=== PATIENT | male | born 1985 | race Native Hawaiian/Other Pacific Islander ===

== ENCOUNTER 2020-09-22 07:27 | Observation (INO) | payer SELFPAY ==
[2020-09-22] MEDS ORDERED: DICYCLOMINE 20 MG TAB PO ONE (07:50)
[2020-09-22] MEDS ORDERED: MORPHINE 4 MG/1 ML INJ IV ONE ×2 (07:50→11:01)
[2020-09-22] MEDS ORDERED: SODIUM CHLORIDE 0.9% 1000 ML 1,000 ML IV ONE (07:50)
[2020-09-22] MEDS ORDERED: FAMOTIDINE 20 MG/2 ML INJ IV ONE (07:50)
[2020-09-22] MEDS ORDERED: ONDANSETRON 4 MG/2 ML INJ IV ONE (07:50)
[2020-09-22 08:02] LABS: Bilirubin,Urine NEG (Negative); Blood,Urine NEG (Negative); Color,Urine Yellow (Yellow); Mucus,Urine FEW /HPF; Urobilinogen,Urine < 2.0 mg/dL (<2.0)
[2020-09-22 08:32] LABS: Basophils % (Auto) 0.2 % (0.0-1.8); Eosinophils % (Auto) 0.3 % (0.0-4.3); Hemoglobin 15.7 gm/dl (11.8-15.2); Mean Corpuscular HGB Conc 34 % (32-34); Mean Corpuscular Volume 92 fl (84-94); Monocytes # (Auto) 0.7 K/mm3 (0.0-0.8); Monocytes % (Auto) 4.2 % (0.0-7.3); Platelet Count 175 K/mm3 (140-440); Red Blood Count 5.13 M/mm3 (3.65-5.03); Red Cell Distribution Width 13.2 % (13.2-15.2)
[2020-09-22 08:48] LABS: Alanine Aminotransferase 59 units/L (7-56); Albumin 4.7 g/dL (3.9-5); Blood Urea Nitrogen 12 mg/dL (9-20); Calcium 9.6 mg/dL (8.4-10.2); Hemolysis Index 7
[2020-09-22 08:53] LABS: BUN/Creatinine Ratio 17
--- NOTE | 2020-09-22 09:48 | Emergency Department Report ---
ED Abdominal Pain HPI - General Chief Complaint: Abdominal Pain Stated Complaint: STOMACH PAIN Time Seen by Provider: 09/22/20 07:41 Source: patient, family Mode of arrival: Ambulatory Limitations: Language Barrier - History of Present Illness Initial Comments: This is a 35-year-old male nontoxic, well nourished in appearance, no acute signs of distress presents to the ED with c/o of nausea and abdominal pain in the epigastric area x 1 day. Patient denies any vomiting. Patient that he had some several beers last night and woke up this morning with pain. Patient describes abdominal pain as cramping and aching with level of 8/10 to the epigastric area. Patient denies chest pain, short of breath, fever, hemoptysis, blood in stool, chills, headache, stiff neck, numbness or tingling. Patient denies any diarrhea or constipation. Denies any blood in stool. Patient denies any recent travels. Patient denies any drug allergies significant past medical history. -: This morning Location: epigastric Radiation: none Migration to: no migration Severity: mild Severity scale (0 -10): 8 Quality: cramping, aching Consistency: constant Improves With: nothing Worsens With: nothing Associated Symptoms: nausea. denies: vomiting, diarrhea, fever, chills, constipation, dysuria, hematemesis, hematochezia, melena, hematuria, anorexia, syncope - Related Data Allergies Allergy/AdvReac Type Severity Reaction Status Date / Time No Known Allergies Allergy Unverified 09/22/20 07:32 ED Review of Systems ROS: Stated complaint: STOMACH PAIN Other details as noted in HPI Comment: All other systems reviewed and negative Constitutional: denies: chills, fever Eyes: denies: eye pain, eye discharge, vision change ENT: denies: ear pain, throat pain Respiratory: denies: cough, shortness of breath, wheezing Cardiovascular: denies: chest pain, palpitations Endocrine: no symptoms reported Gastrointestinal: abdominal pain, nausea. denies: vomiting, diarrhea, constipation, hematemesis, melena, hematochezia Genitourinary: denies: urgency, dysuria Musculoskeletal: denies: back pain, joint swelling, arthralgia Skin: denies: rash, lesions Neurological: denies: headache, weakness, paresthesias Psychiatric: denies: anxiety, depression Hematological/Lymphatic: denies: easy bleeding, easy bruising ED Past Medical Hx - Past Medical History Previous Medical History?: Yes Additional medical history: Abd pain - Surgical History Past Surgical History?: No - Social History Smoking Status: Current Every Day Smoker Substance Use Type: Alcohol ED Physical Exam - General Limitations: Language Barrier General appearance: alert, in no apparent distress - Head Head exam: Present: atraumatic, normocephalic - Eye Eye exam: Present: normal appearance - Neck Neck exam: Present: normal inspection, full ROM. Absent: tenderness, meningismus, lymphadenopathy - Respiratory Respiratory exam: Present: normal lung sounds bilaterally. Absent: respiratory distress, wheezes, rales, rhonchi, stridor, chest wall tenderness, accessory muscle use, decreased breath sounds, prolonged expiratory - Cardiovascular Cardiovascular Exam: Present: regular rate, normal rhythm, normal heart sounds. Absent: bradycardia, tachycardia, irregular rhythm, systolic murmur, diastolic murmur, rubs, gallop - GI/Abdominal GI/Abdominal exam: Present: soft, tenderness (Bilateral upper abdomen), normal bowel sounds. Absent: distended, guarding, rebound, rigid, diminished bowel sounds - Extremities Exam Extremities exam: Present: normal inspection, full ROM - Back Exam Back exam: Present: normal inspection, full ROM. Absent: tenderness, CVA tenderness (R), CVA tenderness (L), muscle spasm, paraspinal tenderness, vertebral tenderness, rash noted - Neurological Exam Neurological exam: Present: alert, oriented X3, normal gait - Psychiatric Psychiatric exam: Present: normal affect, normal mood - Skin Skin exam: Present: warm, dry, intact, normal color. Absent: rash ED Course Vital Signs 09/22/20 09/22/20 09/22/20 07:32 08:26 11:20 Temperature 97.9 F Pulse Rate 61 Respiratory 20 20 18 Rate Blood Pressure 136/86 O2 Sat by Pulse 100 Oximetry - Reevaluation(s) Reevaluation #1: 09/22/20 09:49 Patient is speaking in full sentences with no signs of distress noted. - Consultations Consultation #1: 09/22/20 11:01 Patient has been consulted with Dr. Ladd about patient history, physical exam, and labs/CT results and agrees to ED plan of care. Consultation #2: 09/22/20 14:35 Patient has been consulted with Dr. Ladd about patient history, physical exam, and labs/imaging results and agrees to the ED plan of care and admission. 09/22/20 15:02 Patient has been consulted with Dr. Larry (general surgery) about patient history, physical exam, and labs/imaging results and agrees for admission with IV antibiotics and NPO after midnight. Consultation #3: 09/22/20 15:02 Patient has been consulted with Dr. Mendoza about patient history, physical exam, and labs/imaging results and accepts patient to services. ED Medical Decision Making - Lab Data Result diagrams: 09/22/20 07:46 09/22/20 07:46 Lab Results 09/22/20 09/22/20 09/22/20 Range/Units 07:43 07:46 07:46 WBC 15.8 H (4.5-11.0) K/mm3 RBC 5.13 H (3.65-5.03) M/mm3 Hgb 15.7 H (11.8-15.2) gm/dl Hct 47.0 H (35.5-45.6) % MCV 92 (84-94) fl MCH 31 (28-32) pg MCHC 34 (32-34) % RDW 13.2 (13.2-15.2) % Plt Count 175 (140-440) K/mm3 Lymph % (Auto) 13.0 L (13.4-35.0) % [place] % (Auto) 4.2 (0.0-7.3) % Eos % (Auto) 0.3 (0.0-4.3) % Baso % (Auto) 0.2 (0.0-1.8) % Lymph # (Auto) 2.0 (1.2-5.4) K/mm3 [place] # (Auto) 0.7 (0.0-0.8) K/mm3 Eos # (Auto) 0.0 (0.0-0.4) K/mm3 Baso # (Auto) 0.0 (0.0-0.1) K/mm3 Seg Neutrophils % 82.3 H (40.0-70.0) % Seg Neutrophils # 13.0 H (1.8-7.7) K/mm3 Sodium 140 (137-145) mmol/L Potassium 4.1 (3.6-5.0) mmol/L Chloride 102.7 (98-107) mmol/L Carbon Dioxide 28 (22-30) mmol/L Anion Gap 13 mmol/L BUN 12 (9-20) mg/dL Creatinine 0.7 L (0.8-1.3) mg/dL Estimated GFR > 60 ml/min BUN/Creatinine Ratio 17 % Glucose 127 H (75-100) mg/dL Calcium 9.6 (8.4-10.2) mg/dL Total Bilirubin 0.30 (0.1-1.2) mg/dL AST 34 (5-40) units/L ALT 59 H (7-56) units/L Alkaline Phosphatase 77 (35-129) units/L Total Protein 8.2 (6.3-8.2) g/dL Albumin 4.7 (3.9-5) g/dL Albumin/Globulin Ratio 1.3 % Lipase 21 (13-60) units/L Urine Color Yellow (Yellow) Urine Turbidity Clear (Clear) Urine pH 8.0 H (5.0-7.0) Ur Specific [place] 1.017 (1.003-1.030) Urine Protein 30 mg/dl (Negative) mg/dL Urine Glucose (UA) Neg (Negative) mg/dL Urine Ketones Neg (Negative) mg/dL Urine Blood Neg (Negative) Urine Nitrite Neg (Negative) Urine Bilirubin Neg (Negative) Urine Urobilinogen < 2.0 (<2.0) mg/dL Ur Leukocyte Esterase Neg (Negative) Urine WBC (Auto) 1.0 (0.0-6.0) /HPF Urine RBC (Auto) 1.0 (0.0-6.0) /HPF Urine Mucus Few /HPF - Radiology Data Referring Physician: RONNA ROBERT Patient Name: CITLALI ART Date of : 1985 Sex: Male Report Date: 2020-09-22 Report Status: Finalized [place] [id number] Ultrasound Report Signed Patient: CITLALI ART MR#: [id number] : 1985 Acct:[id number] Age/Sex: 35 / M ADM Date: 09/22/20 Loc: ED Attending Dr: Ordering Physician: RONNA ROBERT NP Date of Service: 09/22/20 Procedure(s): US abdomen complete Accession Number(s): [id number] cc: RONNA ROBERT NP ULTRASOUND ABDOMEN, COMPLETE INDICATION: Epigastric/abdominal pain. COMPARISON: CT of the abdomen and pelvis earlier today. FINDINGS: PANCREAS: No significant abnormality. ABDOMINAL AORTA: No significant abnormality. IVC: No significant abnormality.. LIVER: No significant abnormality. GALLBLADDER: Multiple gallstones. Diffuse edematous thickening of the gallbladder wall which measures up to 4.5 mm. BILE DUCTS: No significant abnormality. Common bile duct measures 5.6 mm. KIDNEYS: Right: No significant abnormality Left: No significant abnormality SPLEEN: No significant abnormality. FREE FLUID: None. ADDITIONAL FINDINGS: None. IMPRESSION: Cholelithiasis and findings characteristic of acute cholecystitis. Signer Name: Nikita Jenkins MD Signed: 09/22/2020 2:02 PM Workstation Name: [id number] Transcribed By: RT Dictated By: Nikita Jenkins MD Electronically Authenticated By: Nikita Jenkins MD Signed Date/Time: 09/22/20 1402 DD/ 1356 TD/TT: Referring Physician: RONNA ROBERT Patient Name: CITLALI ART Date of : 1985 Sex: Male Report Date: 2020-09-22 Report Status: [place] [id number] Cat Scan Report Signed Patient: CITLALI ART MR#: [id number] : 1985 Acct:[id number] Age/Sex: 35 / M ADM Date: 09/22/20 Loc: ED Attending Dr: Ordering Physician: RONNA ROBERT NP Date of Service: 09/22/20 Procedure(s): CT angio chest Accession Number(s): [id number] cc: RONNA ROBERT NP CTA CHEST WITH IV CONTRAST INDICATION / CLINICAL INFORMATION: epigastric pain. TECHNIQUE: Axial CT images were obtained through the chest after injection of 100 cc Omnipaque 350 milligrams percent IV contrast. 3 plane MIP and/or 3D reconstructions were produced. All CT scans at this location are performed using CT dose reduction for ALARA by means of automated exposure control. COMPARISON: None available. FINDINGS: PULMONARY ARTERIES: No pulmonary emboli. THORACIC AORTA: No significant abnormality. HEART: No significant abnormality. CORONARY ARTERIES: No significant calcification. PLEURA: No pleural effusion. No pneumothorax. LYMPH NODES: No significant adenopathy. LUNGS: No acute air space or interstitial disease. ADDITIONAL FINDINGS: None. UPPER ABDOMEN: Gallbladder distention is present with slight reticulation of fat and possible pericholecystic fluid better delineated on this exam as compared to previous exam of earlier the same day. Suggestion of gallbladder wall thickening. Several small lucent calculus are present in the neck of the gallbladder. SKELETAL STRUCTURES: No significant osseous abnormality. IMPRESSION: 1. No CT evidence for pulmonary embolism. 2. CT findings worrisome for acute cholecystitis 3. Improved aeration lower lobes Signer Name: Christopher Mckeon MD Signed: 09/22/2020 12:21 PM Workstation Name: [id number] Transcribed By: WG Dictated By: Christopher Mckeon MD Electronically Authenticated By: Christopher Mckeon MD Signed Date/Time: 09/22/20 1221 DD/ 1216 TD/TT: Referring Physician: RONNA ROBERT Patient Name: CITLALI ART Date of : 1985 Sex: Male Report Date: 2020-09-22 Report Status: Finalized [place] [id number] Cat Scan Report Signed Patient: CITLALI ART MR#: [id number] : 1985 Acct:[id number] Age/Sex: 35 / M ADM Date: 09/22/20 Loc: ED Attending Dr: Ordering Physician: RONNA ROBERT NP Date of Service: 09/22/20 Procedure(s): CT abdomen pelvis w con Accession Number(s): [id number] cc: RONNA ROBERT NP CT ABDOMEN AND PELVIS WITH CONTRAST INDICATION / CLINICAL INFORMATION: abd pain with nausea. TECHNIQUE: Axial CT images were obtained through the abdomen and pelvis after 100 cc Omnipaque 300 milligrams percent IV contrast. All CT scans at this location are performed using CT dose reduction for ALARA by means of automated exposure control. COMPARISON: None available. FINDINGS: LOWER CHEST: Minimum parenchymal changes right lower lobe. LIVER: No significant abnormality. GALLBLADDER: No significant abnormality. BILE DUCTS: No significant abnormality. PANCREAS: No significant abnormality. SPLEEN: No significant abnormality. ADRENALS: No significant abnormality. RIGHT KIDNEY and URETER: No significant abnormality. LEFT KIDNEY and URETER: No significant abnormality. STOMACH and SMALL BOWEL: No significant abnormality. COLON: Large amount feces is present in the colon. APPENDIX: No significant abnormality. PERITONEUM: No free fluid. No free air. No fluid collection. LYMPH NODES: No significant adenopathy. AORTA and ARTERIES: No significant abnormality. IVC and VEINS: No significant abnormality. URINARY BLADDER: No significant abnormality. REPRODUCTIVE ORGANS: No significant abnormality. ADDITIONAL FINDINGS: None. SKELETAL SYSTEM: No significant abnormality. IMPRESSION: 1. Questionable mild inflammatory process right lower lobe. Signer Name: Christopher Mckeon MD Signed: 09/22/2020 10:09 AM Workstation Name: [id number] Transcribed By: WG Dictated By: Christopher Mckeon MD Electronically Authenticated By: Christopher Mckeon MD Signed Date/Time: 09/22/20 1009 DD/ 1006 TD/TT: - Medical Decision Making This is a 35-year-old male that presents with cholecystitis. Patient is stable and was examined by me. Patient was consulted with surgery Dr. Larry and agrees to admission. Patient admitted with hospitalist. IV resuscitation with antibiotics provided to patient in the ER. Vital signs are stable. Patient is notified of the CT and ultrasound report with no questions noted by the patient. At time of admission, the patient does not seem toxic or ill in appearance. No acute signs of distress noted. Patient agrees to admission treatment plan of care. No further questions noted by the patient. Salvadorean translation has been used throughout the whole ED stay. Critical care attestation.: If time is entered above; I have spent that time in minutes in the direct care of this critically ill patient, excluding procedure time. ED Disposition Clinical Impression: Acute cholecystitis Cholelithiasis Qualifiers: Cholelithiasis location: gallbladder Cholecystitis presence: with cholecystitis Cholecystitis acuity: acute Biliary obstruction: without biliary obstruction Qualified Code(s): K80.00 - Calculus of gallbladder with acute cholecystitis without obstruction Disposition: OP ADMIT IP TO THIS HOSP Is pt being admited?: Yes Condition: Stable
--- NOTE | 2020-09-22 10:14 | Cat Scan Report ---
CT ABDOMEN AND PELVIS WITH CONTRAST INDICATION / CLINICAL INFORMATION: abd pain with nausea. TECHNIQUE: Axial CT images were obtained through the abdomen and pelvis after 100 cc Omnipaque 300 milligrams pe rcent IV contrast. All CT scans at this location are performed using CT dose reduction for ALARA by means of automated exposure control. COMPARISON: None available. FINDINGS: LOWER CHEST: Minimum parenchymal changes right lower lobe. LIVER: No significant abnormality. GALLBLADDER: No significant abnormality. BILE DUCTS: No significant abnormality. PANCREAS: No significant abnormality. SPLEEN: No significant abnormality. ADRENALS: No significant abnormality. RIGHT KIDNEY and URETER: No significant abnormality. LEFT KIDNEY and URETER: No significant abnormality. STOMACH and SMALL BOWEL: No significant abnormality. COLON: Large amount feces is present in the colon. APPENDIX: No significant abnormality. PERITONEUM: No free fluid. No free air. No fluid collection. LYMPH NODES: No significant adenopathy. AORTA and ARTERIES: No significant abnormality. IVC and VEINS: No significant abnormality. URINARY BLADDER: No significant abnormality. REPRODUCTIVE ORGANS: No significant abnormality. ADDITIONAL FINDINGS: None. SKELETAL SYSTEM: No significant abnormality. IMPRESSION: 1. Questionable mild inflammatory process right lower lobe. Signer Name: Christopher Mckeon MD Signed: 09/22/2020 10:09 AM Workstation Name: [id number]
--- NOTE | 2020-09-22 12:25 | Cat Scan Report ---
CTA CHEST WITH IV CONTRAST INDICATION / CLINICAL INFORMATION: epigastric pain. TECHNIQUE: Axial CT images were obtained through the chest after injection of 100 cc Omnipaque 350 milligrams pe rcent IV contrast. 3 plane MIP and/or 3D reconstructions were produced. All CT scans at this location are performed using CT dose reduction for ALARA by means of automated exposure control. COMPARISON: None available. FINDINGS: PULMONARY ARTERIES: No pulmonary emboli. THORACIC AORTA: No significant abnormality. HEART: No significant abnormality. CORONARY ARTERIES: No significant calcification. PLEURA: No pleural effusion. No pneumothorax. LYMPH NODES: No significant adenopathy. LUNGS: No acute air space or interstitial disease. ADDITIONAL FINDINGS: None. UPPER ABDOMEN: Gallbladder distention is present with slight reticulation of fat and possible pericho lecystic fluid better delineated on this exam as compared to previous exam of earlier the same day. S uggestion of gallbladder wall thickening. Several small lucent calculus are present in the neck of th e gallbladder. SKELETAL STRUCTURES: No significant osseous abnormality. IMPRESSION: 1. No CT evidence for pulmonary embolism. 2. CT findings worrisome for acute cholecystitis 3. Improved aeration lower lobes Signer Name: Christopher Mckeon MD Signed: 09/22/2020 12:21 PM Workstation Name: [id number]
[2020-09-22] MEDS ORDERED: PIPERACIL/TAZOBACTA 4.5/NS 100 4.5 GM/100 ML VIAL IV ONE (12:31)
--- NOTE | 2020-09-22 14:07 | Ultrasound Report ---
ULTRASOUND ABDOMEN, COMPLETE INDICATION: Epigastric/abdominal pain. COMPARISON: CT of the abdomen and pelvis earlier today. FINDINGS: PANCREAS: No significant abnormality. ABDOMINAL AORTA: No significant abnormality. IVC: No significant abnormality.. LIVER: No significant abnormality. GALLBLADDER: Multiple gallstones. Diffuse edematous thickening of the gallbladder wall which measures up to 4.5 mm. BILE DUCTS: No significant abnormality. Common bile duct measures 5.6 mm. KIDNEYS: Right: No significant abnormality Left: No significant abnormality SPLEEN: No significant abnormality. FREE FLUID: None. ADDITIONAL FINDINGS: None. IMPRESSION: Cholelithiasis and findings characteristic of acute cholecystitis. Signer Name: Nikita Jenkins MD Signed: 09/22/2020 2:02 PM Workstation Name: [id number]
--- NOTE | 2020-09-22 15:03 | History and Physical Report ---
History of Present Illness Chief complaint: My stomach hurts History of present illness: 35 YO Male with Obesity, Nicotine Dependence, ETOH Dependence presents to ED for evaluation. Patient states that she has experienced abdominal pain over the past 1 day with persistent symptoms over the same timeframe. Patient states that pain is 8/10, located near the umbilicus, constant, nonradiating, without exacerbating or alleviating factors. Patient acknowledges nausea. Patient transported to [facility] via private vehicle for further care and evaluation of the aforementioned symptoms. Patient seen and evaluated in the emergency department. All lab and imaging studies reviewed. Patient underwent CT scan of the abdomen and pelvis as well as an abdominal ultrasound which revealed evidence of acute cholecystitis. Surgical team consulted in the ED. Patient placed in observation status and admitted to surgical floor due to increased risk of worsening symptoms. Patient treated with IV fluid resuscitation therapy, bowel rest, and IV antibiotic therapy. Patient pending surgical intervention as per surgical team. Past History Past Medical History: other (See HPI) Past Surgical History: No surgical history Social history: smoking, alcohol abuse Family history: diabetes, hypertension Medications and Allergies Allergies Allergy/AdvReac Type Severity Reaction Status Date / Time No Known Allergies Allergy Unverified 09/22/20 07:32 Home Medications Medication Instructions Recorded Confirmed Last Taken Type No Known Home Medications [No 09/22/20 09/22/20 Unknown History Reported Home Medications] Review of Systems Constitutional: no weight loss, no weight gain, no fever, no chills Ears, nose, mouth and throat: no ear pain, no tinnitis, no decreased hearing, no nose pain, no nasal discharge Cardiovascular: no chest pain, no orthopnea, no syncope, no lightheadedness Respiratory: no cough, no cough with sputum, no hemoptysis, no shortness of breath Gastrointestinal: abdominal pain, nausea, no vomiting, no diarrhea, no constipation, no change in bowel habits Genitourinary Male: no hematuria, no flank pain, no discharge, no urinary frequency, no urinary hesitancy Rectal: no pain, no incontinence, no bleeding Musculoskeletal: no neck stiffness, no neck pain, no shooting arm pain, no low back pain, no shooting leg pain, no redness of joints Integumentary: no rash, no pruritis, no redness, no wounds, no jaundice Neurological: no head injury, no transient paralysis, no paralysis, no weakness, no parathesias, no numbness, no tingling, no seizures, no syncope Psychiatric: no anxiety, no memory loss, no change in sleep habits, no insomnia, no hypersomnia, no change in appetite, no change in libido, no disorientation Endocrine: no cold intolerance, no heat intolerance, no excessive thirst, no polyuria, no excessive sweating, no flushing Hematologic/Lymphatic: no easy bruising, no easy bleeding, no lymphadenopathy Allergic/Immunologic: no urticaria, no persistent infections, no anaphylaxis Exam - Constitutional Vitals: Temp Pulse Resp BP Pulse Ox 97.9 F 61 18 136/86 100 09/22/20 07:32 09/22/20 07:32 09/22/20 11:20 09/22/20 07:32 09/22/20 07:32 General appearance: Present: mild distress, obese - EENT Eyes: Present: PERRL ENT: hearing intact, clear oral mucosa - Neck Neck: Present: supple, normal ROM - Respiratory Respiratory effort: normal Respiratory: bilateral: CTA - Cardiovascular Heart Sounds: Present: S1 & S2. Absent: rub, click - Extremities Extremities: pulses symmetrical, No edema Peripheral Pulses: within normal limits - Abdominal General gastrointestinal: Present: soft, non-tender, non-distended, normal bowel sounds Localized gastrointestinal: tender: epigastric periumbilical Male genitourinary: Present: tender - Integumentary Integumentary: Present: clear, warm, dry - Musculoskeletal Musculoskeletal: gait normal, strength equal bilaterally - Psychiatric Psychiatric: appropriate mood/affect, intact judgment & insight - Neurologic Neurologic: CNII-XII intact, moves all extremities Results - Labs CBC & Chem 7: 09/22/20 07:46 09/22/20 07:46 Labs: Abnormal lab results 09/22/20 09/22/20 09/22/20 Range/Units 07:43 07:46 07:46 WBC 15.8 H (4.5-11.0) K/mm3 RBC 5.13 H (3.65-5.03) M/mm3 Hgb 15.7 H (11.8-15.2) gm/dl Hct 47.0 H (35.5-45.6) % Lymph % (Auto) 13.0 L (13.4-35.0) % Seg Neutrophils % 82.3 H (40.0-70.0) % Seg Neutrophils # 13.0 H (1.8-7.7) K/mm3 Creatinine 0.7 L (0.8-1.3) mg/dL Glucose 127 H (75-100) mg/dL ALT 59 H (7-56) units/L Urine pH 8.0 H (5.0-7.0) Assessment and Plan - Patient Problems (1) Acute cholecystitis Current Visit: Yes Status: Acute Plan to address problem: CT scan abdomen and pelvis, abdominal ultrasound, IV antibiotic therapy, bowel rest, IV fluid resuscitation therapy, surgical intervention as per surgical team. (2) Nicotine dependence Current Visit: Yes Status: Acute Qualifiers: Nicotine product type: cigarettes Substance use status: in withdrawal Qualified Code(s): F17.213 - Nicotine dependence, cigarettes, with withdrawal Plan to address problem: Smoking cessation counseling, supportive care, behavior change counseling, +15 minutes. (3) Alcohol dependence Current Visit: Yes Status: Acute Plan to address problem: Banana bag, supportive care, CIWA protocol, oral thiamine, folic acid, multivitamin when patient is able to tolerate oral diet (4) Obesity (BMI 30.0-34.9) Current Visit: Yes Status: Acute Plan to address problem: Balanced diet, increase physical activity discharge. (5) DVT prophylaxis Current Visit: Yes Status: Acute Plan to address problem: SCDs bilateral lower extremities while in bed, patient is ambulatory.
[2020-09-22] MEDS ORDERED: ONDANSETRON 4 MG/2 ML INJ IV PRN (15:05)
[2020-09-22] MEDS ORDERED: ACETAMINOPHEN 325 MG TAB PO PRN (15:05)
[2020-09-22] MEDS: metroNIDAZOLE/NS 500 MG/100 ML 500 MG/100 ML BAG IV SCH ×2 (15:56→23:53)
[2020-09-22] MEDS: SODIUM CHLORIDE 0.9% 1000 ML 1,000 ML IV SCH (15:56)
[2020-09-22] MEDS: PIPERACIL/TAZOBACTA 4.5/NS 100 4.5 GM/100 ML VIAL IV SCH ×2 (18:00→23:53)
[2020-09-22] MEDS ORDERED: LORazepam 2 MG/ML VIAL IV PRN (19:48)
[2020-09-22] MEDS ORDERED: THIAMINE 100 MG, FOLIC ACID 1 MG, MULTIPLE VITAMIN INJ, ADULT 10 ML in SODIUM CHLORIDE ... IV ONE (20:47)
[2020-09-23 08:58] LABS: Basophils # (Auto) 0.1 K/mm3 (0.0-0.1); Basophils % (Auto) 0.4 % (0.0-1.8); Eosinophils # (Auto) 0.1 K/mm3 (0.0-0.4); Eosinophils % (Auto) 0.6 % (0.0-4.3); Hematocrit 43.2 % (35.5-45.6); Hemoglobin 14.2 gm/dl (11.8-15.2); Lymphocytes # (Auto) 1.8 K/mm3 (1.2-5.4); Lymphocytes % (Auto) 13.1 % (13.4-35.0); Mean Corpuscular HGB Conc 33 % (32-34); Mean Corpuscular Volume 92 fl (84-94); Monocytes # (Auto) 1.2 K/mm3 (0.0-0.8); Monocytes % (Auto) 8.3 % (0.0-7.3); Platelet Count 159 K/mm3 (140-440); Red Blood Count 4.67 M/mm3 (3.65-5.03); Red Cell Distribution Width 13.1 % (13.2-15.2)
--- NOTE | 2020-09-23 09:25 | Progress Note ---
Assessment and Plan Assessment and plan: 35 YO Male with Obesity, Nicotine Dependence, ETOH Dependence presents to ED for evaluation. Patient states that she has experienced abdominal pain over the past 1 day with persistent symptoms over the same timeframe. Patient states that pain is 8/10, located near the umbilicus, constant, nonradiating, without exacerbating or alleviating factors. Patient acknowledges nausea. Patient transported to [facility] via private vehicle for further care and evaluation of the aforementioned symptoms. Patient seen and evaluated in the emergency department. All lab and imaging studies reviewed. Patient underwent CT scan of the abdomen and pelvis as well as an abdominal ultrasound which revealed evidence of acute cholecystitis. Surgical team consulted in the ED. Patient placed in observation status and admitted to surgical floor due to increased risk of worsening symptoms. Patient treated with IV fluid resuscitation therapy, bowel rest, and IV antibiotic therapy. Patient pending surgical intervention as per surgical team. (1) Acute cholecystitis Current Visit: Yes Status: Acute Plan to address problem: CT scan abdomen and pelvis, abdominal ultrasound, IV antibiotic therapy, bowel rest, IV fluid resuscitation therapy, surgical intervention as per surgical team. 09/23: Ongoing surgical evaluation for possible Cholecystectomy today. Leukocytosis improving. Discharge when ok with Surgery. (2) Nicotine dependence Current Visit: Yes Status: Acute Qualifiers: Nicotine product type: cigarettes Substance use status: in withdrawal Qualified Code(s): F17.213 - Nicotine dependence, cigarettes, with withdrawal Plan to address problem: Smoking cessation counseling, supportive care, behavior change counseling, +15 minutes. (3) Alcohol dependence Current Visit: Yes Status: Acute Plan to address problem: Banana bag, supportive care, CIWA protocol, oral thiamine, folic acid, multivitamin when patient is able to tolerate oral diet (4) Obesity (BMI 30.0-34.9) Current Visit: Yes Status: Acute Plan to address problem: Balanced diet, increase physical activity discharge. (5) DVT prophylaxis Current Visit: Yes Status: Acute Plan to address problem: SCDs bilateral lower extremities while in bed, patient is ambulatory. History Interval history: Patient seen and examined, resting comfortable. No new complaints. Hospitalist Physical - Constitutional Vitals: Temp Pulse Resp BP Pulse Ox 98.9 F 93 H 18 128/69 96 09/23/20 08:26 09/23/20 08:26 09/23/20 08:26 09/23/20 08:09/23/20 09:14 General appearance: Present: mild distress, obese - EENT Eyes: Present: PERRL ENT: hearing intact, clear oral mucosa - Neck Neck: Present: supple, normal ROM - Respiratory Respiratory effort: normal Respiratory: bilateral: CTA - Cardiovascular Rhythm: regular Heart Sounds: Present: S1 & S2. Absent: systolic murmur, diastolic murmur - Extremities Extremities: no ischemia, pulses intact, No edema, normal temperature, Full ROM Peripheral Pulses: within normal limits - Abdominal General gastrointestinal: soft, tender, non-distended, normal bowel sounds - Integumentary Integumentary: Present: clear, warm, dry - Psychiatric Psychiatric: appropriate mood/affect, intact judgment & insight, memory intact - Neurologic Neurologic: CNII-XII intact, moves all extremities - Allied Health Allied health notes reviewed: nursing Results - Labs CBC & Chem 7: 09/23/20 08:30 09/22/20 07:46 Labs: Laboratory Last Values WBC 14.0 K/mm3 (4.5-11.0) H 09/23/20 08:30 RBC 4.67 M/mm3 (3.65-5.03) 09/23/20 08:30 Hgb 14.2 gm/dl (11.8-15.2) 09/23/20 08:30 Hct 43.2 % (35.5-45.6) 09/23/20 08:30 MCV 92 fl (84-94) 09/23/20 08:30 MCH 30 pg (28-32) 09/23/20 08:30 MCHC 33 % (32-34) 09/23/20 08:30 RDW 13.1 % (13.2-15.2) L 09/23/20 08:30 Plt Count 159 K/mm3 (140-440) 09/23/20 08:30 Lymph % (Auto) 13.1 % (13.4-35.0) L 09/23/20 08:30 [place] % (Auto) 8.3 % (0.0-7.3) H 09/23/20 08:30 Eos % (Auto) 0.6 % (0.0-4.3) 09/23/20 08:30 Baso % (Auto) 0.4 % (0.0-1.8) 09/23/20 08:30 Lymph # (Auto) 1.8 K/mm3 (1.2-5.4) 09/23/20 08:30 [place] # (Auto) 1.2 K/mm3 (0.0-0.8) H 09/23/20 08:30 Eos # (Auto) 0.1 K/mm3 (0.0-0.4) 09/23/20 08:30 Baso # (Auto) 0.1 K/mm3 (0.0-0.1) 09/23/20 08:30 Seg Neutrophils % 77.6 % (40.0-70.0) H 09/23/20 08:30 Seg Neutrophils # 10.9 K/mm3 (1.8-7.7) H 09/23/20 08:30 Sodium 140 mmol/L (137-145) 09/22/20 07:46 Potassium 4.1 mmol/L (3.6-5.0) 09/22/20 07:46 Chloride 102.7 mmol/L (98-107) 09/22/20 07:46 Carbon Dioxide 28 mmol/L (22-30) 09/22/20 07:46 Anion Gap 13 mmol/L 09/22/20 07:46 BUN 12 mg/dL (9-20) 09/22/20 07:46 Creatinine 0.7 mg/dL (0.8-1.3) L 09/22/20 07:46 Estimated GFR > 60 ml/min 09/22/20 07:46 BUN/Creatinine Ratio 17 % 09/22/20 07:46 Glucose 127 mg/dL (75-100) H 09/22/20 07:46 Calcium 9.6 mg/dL (8.4-10.2) 09/22/20 07:46 Total Bilirubin 0.30 mg/dL (0.1-1.2) 09/22/20 07:46 AST 34 units/L (5-40) 09/22/20 07:46 ALT 59 units/L (7-56) H 09/22/20 07:46 Alkaline Phosphatase 77 units/L (35-129) 09/22/20 07:46 Total Protein 8.2 g/dL (6.3-8.2) 09/22/20 07:46 Albumin 4.7 g/dL (3.9-5) 09/22/20 07:46 Albumin/Globulin Ratio 1.3 % 09/22/20 07:46 Lipase 21 units/L (13-60) 09/22/20 07:46 Urine Color Yellow (Yellow) 09/22/20 07:43 Urine Turbidity Clear (Clear) 09/22/20 07:43 Urine pH 8.0 (5.0-7.0) H 09/22/20 07:43 Ur Specific [place] 1.017 (1.003-1.030) 09/22/20 07:43 Urine Protein 30 mg/dl mg/dL (Negative) 09/22/20 07:43 Urine Glucose (UA) Neg mg/dL (Negative) 09/22/20 07:43 Urine Ketones Neg mg/dL (Negative) 09/22/20 07:43 Urine Blood Neg (Negative) 09/22/20 07:43 Urine Nitrite Neg (Negative) 09/22/20 07:43 Urine Bilirubin Neg (Negative) 09/22/20 07:43 Urine Urobilinogen < 2.0 mg/dL (<2.0) 09/22/20 07:43 Ur Leukocyte Esterase Neg (Negative) 09/22/20 07:43 Urine WBC (Auto) 1.0 /HPF (0.0-6.0) 09/22/20 07:43 Urine RBC (Auto) 1.0 /HPF (0.0-6.0) 09/22/20 07:43 Urine Mucus Few /HPF 09/22/20 07:43 Brandon/IV: Voiding Method Urinal IV Catheter Type [Left Peripheral IV Antecubital] Active Medications - Current Medications Current Medications: Generic Name Dose Route Start Last Admin Trade Name Freq PRN Reason Stop Dose Admin Acetaminophen 650 mg 09/22/20 15:05 Acetaminophen 325 Mg Tab PO Q4H PRN Pain MILD(1-3)/Fever >100.5/DELEON Metronidazole 500 mg in 100 mls @ 100 mls/hr 09/22/20 16:00 09/22/20 23:53 Flagyl 500 Mg/100 Ml IV 100 mls/hr Q8H HAO Administration Protocol Piperacillin Sod/Tazobactam Sod 4.5 gm in 100 mls @ 200 mls/hr 09/22/20 16:00 09/22/20 23:53 Zosyn/Ns 4.5gm/100ml IV 200 mls/hr Q8H HAO Administration Protocol Sodium Chloride 1,000 mls @ 125 mls/hr 09/22/20 15:15 09/22/20 15:56 Nacl 0.9% 1000 Ml IV 125 mls/hr DIRECT HAO Administration Lorazepam 2 mg 09/22/20 19:48 Lorazepam 2 Mg/Ml Vial IV Q1HR PRN CIWA-Ar 8-15 Ondansetron HCl 4 mg 09/22/20 15:05 Ondansetron 4 Mg/2 Ml Inj IV Q8H PRN Nausea And Vomiting Sodium Chloride 10 ml 09/22/20 22:00 09/22/20 21:54 Sodium Chloride 0.9% 10 Ml Flush Syringe IV 10 ml BID HAO Administration Sodium Chloride 10 ml 09/22/20 15:05 Sodium Chloride 0.9% 10 Ml Flush Syringe IV PRN PRN LINE FLUSH
--- NOTE | 2020-09-23 09:26 | Consultation ---
History of Present Illness Consult date: 09/23/20 Reason for consult: abdominal pain - History of present illness History of present illness: 35 year old male presented to ED with a one day history of epigastric and RUQ pain. He denies n/v. He had a US and CT that showed gallbladder thickening and gallstones. He says that he had the pain over a year ago several times but never lasted more than 30 minutes. Past History Past Medical History: other (See HPI) Past Surgical History: No surgical history Social history: , smoking, alcohol abuse Family history: diabetes, hypertension Medications and Allergies Allergies Allergy/AdvReac Type Severity Reaction Status Date / Time No Known Allergies Allergy Unverified 09/22/20 07:32 Home Medications Medication Instructions Recorded Confirmed Last Taken Type No Known Home Medications [No 09/22/20 09/22/20 Unknown History Reported Home Medications] Active Meds: Active Medications Acetaminophen (Acetaminophen 325 Mg Tab) 650 mg PO Q4H PRN PRN Reason: Pain MILD(1-3)/Fever >100.5/DELEON Metronidazole (Flagyl 500 Mg/100 Ml) 500 mg in 100 mls @ 100 mls/hr IV Q8H HAO; Protocol Last Admin: 09/22/20 23:53 Dose: 100 mls/hr Documented by: Piperacillin Sod/Tazobactam Sod (Zosyn/Ns 4.5gm/100ml) 4.5 gm in 100 mls @ 200 mls/hr IV Q8H HAO; Protocol Last Admin: 09/22/20 23:53 Dose: 200 mls/hr Documented by: Sodium Chloride (Nacl 0.9% 1000 Ml) 1,000 mls @ 125 mls/hr IV DIRECT HAO Last Admin: 09/22/20 15:56 Dose: 125 mls/hr Documented by: Lorazepam (Lorazepam 2 Mg/Ml Vial) 2 mg IV Q1HR PRN PRN Reason: CIWA-Ar 8-15 Ondansetron HCl (Ondansetron 4 Mg/2 Ml Inj) 4 mg IV Q8H PRN PRN Reason: Nausea And Vomiting Sodium Chloride (Sodium Chloride 0.9% 10 Ml Flush Syringe) 10 ml IV BID HAO Last Admin: 09/22/20 21:54 Dose: 10 ml Documented by: Sodium Chloride (Sodium Chloride 0.9% 10 Ml Flush Syringe) 10 ml IV PRN PRN PRN Reason: LINE FLUSH Review of Systems - Constitutional no weight loss, no weight gain - Cardiovascular no chest pain - Respiratory no cough, no shortness of breath - Gastrointestinal abdominal pain, no nausea, no vomiting Exam Vital Signs Temp Pulse Resp BP Pulse Ox 97.9 F 61 20 136/86 100 09/22/20 07:32 09/22/20 07:32 09/22/20 07:32 09/22/20 07:32 09/22/20 07:32 - General physical appearance Positive: well developed, well nourished, no distress, moderate pain - Respiratory Positive: normal expansion, normal respiratory effort - Cardiovascular Rhythm: regular Heart Sounds: Present: S1 & S2 - Psychiatric Psychiatric: appropriate mood/affect Results - Labs 09/23/20 08:30 09/22/20 07:46 Abnormal lab results 09/23/20 Range/Units 08:30 WBC 14.0 H (4.5-11.0) K/mm3 RDW 13.1 L (13.2-15.2) % Lymph % (Auto) 13.1 L (13.4-35.0) % [place] % (Auto) 8.3 H (0.0-7.3) % [place] # (Auto) 1.2 H (0.0-0.8) K/mm3 Seg Neutrophils % 77.6 H (40.0-70.0) % Seg Neutrophils # 10.9 H (1.8-7.7) K/mm3 - Imaging CT scan - abdomen: report reviewed, image reviewed CT scan - pelvis: report reviewed, image reviewed US - abdomen: report reviewed, image reviewed Assessment and Plan 35 year old male with acute cholecystitis with cholelithiasis. Afebrile and stable. using the [place] language line client experience manager pt was consented for lap gavino possible open. If pt recovers well and as expected, will d/c home tomorrow.
[2020-09-23] MEDS: PIPERACIL/TAZOBACTA 4.5/NS 100 4.5 GM/100 ML VIAL IV SCH ×3 (09:49→23:49)
[2020-09-23] MEDS ORDERED: LIDOCAINE (1%) 10 MG/1 ML VIAL 20 ML MDV ONE (09:55)
[2020-09-23] MEDS ORDERED: BUPIVACAINE/PF (0.25%) 2.5 MG/ML 30 ML VIAL INFILTRATI ONE (10:00)
[2020-09-23] MEDS ORDERED: SODIUM CHLORIDE 0.9% 50 ML ONE (10:06)
[2020-09-23] MEDS ORDERED: fentaNYL 100 MCG/2 ML INJ ONE (10:35)
[2020-09-23] MEDS ORDERED: propofoL 200 MG/20 ML VIAL IV ONE (10:35)
[2020-09-23] MEDS ORDERED: LIDOCAINE MPF (2%) 20 MG/1 ML VIAL 5 ML ONE (10:35)
[2020-09-23] MEDS ORDERED: ONDANSETRON 4 MG/2 ML INJ ONE (10:47)
[2020-09-23] MEDS ORDERED: dexAMETHasone 20 MG/5 ML VIAL ONE (10:47)
[2020-09-23] MEDS ORDERED: ROCURONIUM 50 MG/5 ML INJ IV ONE ×2 (10:47→11:45)
[2020-09-23] MEDS ORDERED: LACTATED RINGERS 1,000 ML ONE (10:55)
[2020-09-23] MEDS ORDERED: BUPIVACAINE-EPINEPHRINE/PF 0.25%-1:200,000 (30 ML) VIAL INFILTRATI ONE (11:03)
[2020-09-23] MEDS ORDERED: KETOROLAC 30 MG/1 ML INJ ONE ×3 (11:12→12:11)
[2020-09-23] MEDS ORDERED: NEOSTIGMINE 10MG/10 ML INJ MDV ONE (11:28)
[2020-09-23] MEDS ORDERED: GLYCOPYRROLATE 0.4 MG/2 ML INJ ONE (11:29)
[2020-09-23] MEDS ORDERED: HYDROmorphone 1 MG/1 ML INJ IV PRN ×2 (12:33)
[2020-09-23] MEDS ORDERED: ONDANSETRON 4 MG/2 ML INJ IV PRN (12:33)
--- NOTE | 2020-09-23 12:34 | Anesthesia Day of Surgery ---
Anesthesia Day of Surgery - Day of Surgery Patient Examined: Yes Patient H&P Reviewed: Yes Patient is NPO: Yes (Late entry; done at 1033)
--- NOTE | 2020-09-23 12:35 | Anesthesia Consultation ---
Anesthesia Consult and Med Hx Date of service: 09/23/20 - Airway Anesthetic Teeth Evaluation: Good ROM Head & Neck: Adequate Mental/Hyoid Distance: Adequate Mallampati Class: Class I Intubation Access Assessment: Good - Pre-Operative Health Status ASA Pre-Surgery Classification: ASA2, Emergency Proposed Anesthetic Plan: General - Pulmonary Hx Smoking: Yes Hx Asthma: No Hx Pneumonia: No - Endocrine Hx End Stage Renal Disease: No - Other Systems Hx Alcohol Use: Yes Hx Obesity: Yes - Additional Comments Anesthesia Medical History Comments: Late entry; done at 1034
--- NOTE | 2020-09-23 12:44 | Operative Report ---
Operative Report Operative Report: Dates of Service: 09/23/2020 Primary Surgeon: Chase Larry MD Assisted by: Naheed Matias DO Anesthesia: General Procedure: laparoscopic cholecystectomy Pre-Operative Diagnosis: cholelithiasis, cholecystitis Post-Operative Diagnosis: Same Indications for Procedure: 35 year old male presented to ED with one day of RUQ pain. Pt was consented for lap gavino with help of recreation attendant supervisor. He expressed understanding of risks and benefits. Description of Procedure(s): The patient was brought to the operating room and underwent general anesthesia after lower extremity SCD were placed. The abdomen was prepped and draped in the standard fashion. IV antibiotics were given and a time out was performed. Using a veress needle via a stab incision in the left subcostal region, the abdomen was insuflated to a pressure of 15mmHg. Using optivew technique, a 5mm trocar was placed just superior and to the left of the umbilicus. There was no gross injury noted to any intra-abdominal structures. After which working trocars were placed under direct visualization. A 12 mm tr ocar was placed in the epigastrium, and two more 5 mm trocars were inserted in the right lateral sites. The gallbladder was located and grasped at the fundus and retracted up toward the patient's right shoulder. The infundibulum was grasped and retracted laterally. A window was made between the cystic artery and the cystic duct, clearly delineating the two structures. These were clipped with a 5 mm clip manager concrete and divided. The peritoneum was incised with hook cautery, and the gallbladder was taken from the liver bed, ensuring hemostatis. The gallbladder wall was edematous with fluid and the posterior wall showed signs of gangrene. The endocatch bag was placed in the abdomen and the gallbladder was then removed from the abdomen. The liver bed was examined and the trocars removed under direct visualization. The insufflation was then terminated. The epigastric incision was closed with a 1-PDS suture using a suture passer device, followed by a o-vicryl to approximate the muscles that had to be cut and stretched to accommodate the extraction of the large gallbladder. The skin incisions were closed using 4-0 Monocryl sutures. All the wounds dressed with dermabond. The patient tolerated the procedure well, was extubated and taken to the recovery room in satisfactory condition. Finding(s): thickened edematous gallbaldder wall with early necrosis on posterior wall, + stones Intra-Operative Complications: none Specimens Removed: Gallbladder with contents Estimated Blood Loss: <15ml Complications: none immediate
[2020-09-23] MEDS ORDERED: MORPHINE 2 MG/1 ML INJ IV PRN (13:05)
[2020-09-23] MEDS ORDERED: oxyCODONE /ACETAMINOPHEN 5-325MG TAB PO PRN (13:05)
[2020-09-23] MEDS: metroNIDAZOLE/NS 500 MG/100 ML 500 MG/100 ML BAG IV SCH ×3 (13:26→23:48)
--- NOTE | 2020-09-23 14:14 | Post Anesthesia Evaluation ---
- Post Anesthesia Evaluation Patient Participated: Yes Airway Patent: Yes Stable Respiratory Function: Yes Nausea/Vomiting: No Temp > 96.8F: Yes Pain Manageable: Yes Adequeate Hydration: Yes Anesthesia Complications: No Block Receding Appropriately: Not Applicable Patient on Ventilator: No
[2020-09-23] MEDS: KETOROLAC 30 MG/1 ML INJ IV SCH ×2 (17:21→23:54)
[2020-09-23] MEDS: SODIUM CHLORIDE 0.9% 1000 ML 1,000 ML IV SCH (21:33)
[2020-09-24] MEDS: KETOROLAC 30 MG/1 ML INJ IV SCH (06:25)
[2020-09-24 07:36] LABS: Basophils % (Auto) 0.1 % (0.0-1.8); Hematocrit 39.6 % (35.5-45.6); Hemoglobin 13.1 gm/dl (11.8-15.2); Lymphocytes # (Auto) 1.5 K/mm3 (1.2-5.4); Lymphocytes % (Auto) 8.3 % (13.4-35.0); Mean Corpuscular HGB Conc 33 % (32-34); Mean Corpuscular Volume 92 fl (84-94); Monocytes % (Auto) 5.8 % (0.0-7.3); Platelet Count 142 K/mm3 (140-440); Red Blood Count 4.29 M/mm3 (3.65-5.03); Red Cell Distribution Width 13.1 % (13.2-15.2)
[2020-09-24 07:50] LABS: Alanine Aminotransferase 42 units/L (7-56); Albumin 3.3 g/dL (3.9-5); BUN/Creatinine Ratio 15; Blood Urea Nitrogen 12 mg/dL (9-20); Calcium 8.1 mg/dL (8.4-10.2); Hemolysis Index 4
[2020-09-24] MEDS: PIPERACIL/TAZOBACTA 4.5/NS 100 4.5 GM/100 ML VIAL IV SCH (09:15)
[2020-09-24 09:44] VITALS: BP 106/58
[2020-09-24] MEDS: metroNIDAZOLE/NS 500 MG/100 ML 500 MG/100 ML BAG IV SCH (10:38)
--- NOTE | 2020-09-24 11:03 | Progress Note ---
Hospitalist Physical - Constitutional Vitals: Temp Pulse Resp BP Pulse Ox 98.0 F 77 18 106/58 93 09/24/20 08:02 09/24/20 08:02 09/24/20 08:02 09/24/20 08:02 09/24/20 08:02 General appearance: Present: mild distress, obese Results - Labs CBC & Chem 7: 09/24/20 06:38 09/24/20 06:38 Labs: Laboratory Last Values WBC 17.8 K/mm3 (4.5-11.0) H 09/24/20 06:38 RBC 4.29 M/mm3 (3.65-5.03) 09/24/20 06:38 Hgb 13.1 gm/dl (11.8-15.2) 09/24/20 06:38 Hct 39.6 % (35.5-45.6) 09/24/20 06:38 MCV 92 fl (84-94) 09/24/20 06:38 MCH 30 pg (28-32) 09/24/20 06:38 MCHC 33 % (32-34) 09/24/20 06:38 RDW 13.1 % (13.2-15.2) L 09/24/20 06:38 Plt Count 142 K/mm3 (140-440) 09/24/20 06:38 Lymph % (Auto) 8.3 % (13.4-35.0) L 09/24/20 06:38 [place] % (Auto) 5.8 % (0.0-7.3) 09/24/20 06:38 Eos % (Auto) 0.0 % (0.0-4.3) 09/24/20 06:38 Baso % (Auto) 0.1 % (0.0-1.8) 09/24/20 06:38 Lymph # (Auto) 1.5 K/mm3 (1.2-5.4) 09/24/20 06:38 [place] # (Auto) 1.0 K/mm3 (0.0-0.8) H 09/24/20 06:38 Eos # (Auto) 0.0 K/mm3 (0.0-0.4) 09/24/20 06:38 Baso # (Auto) 0.0 K/mm3 (0.0-0.1) 09/24/20 06:38 Seg Neutrophils % 85.8 % (40.0-70.0) H 09/24/20 06:38 Seg Neutrophils # 15.2 K/mm3 (1.8-7.7) H 09/24/20 06:38 Sodium 142 mmol/L (137-145) 09/24/20 06:38 Potassium 3.9 mmol/L (3.6-5.0) 09/24/20 06:38 Chloride 107.2 mmol/L (98-107) H 09/24/20 06:38 Carbon Dioxide 23 mmol/L (22-30) 09/24/20 06:38 Anion Gap 16 mmol/L 09/24/20 06:38 BUN 12 mg/dL (9-20) 09/24/20 06:38 Creatinine 0.8 mg/dL (0.8-1.3) 09/24/20 06:38 Estimated GFR > 60 ml/min 09/24/20 06:38 BUN/Creatinine Ratio 15 % 09/24/20 06:38 Glucose 111 mg/dL (75-100) H 09/24/20 06:38 Calcium 8.1 mg/dL (8.4-10.2) L D 09/24/20 06:38 Total Bilirubin 0.40 mg/dL (0.1-1.2) 09/24/20 06:38 AST 26 units/L (5-40) 09/24/20 06:38 ALT 42 units/L (7-56) 09/24/20 06:38 Alkaline Phosphatase 46 units/L (35-129) 09/24/20 06:38 Total Protein 6.2 g/dL (6.3-8.2) L D 09/24/20 06:38 Albumin 3.3 g/dL (3.9-5) L 09/24/20 06:38 Albumin/Globulin Ratio 1.1 % 09/24/20 06:38 Lipase 21 units/L (13-60) 09/22/20 07:46 Urine Color Yellow (Yellow) 09/22/20 07:43 Urine Turbidity Clear (Clear) 09/22/20 07:43 Urine pH 8.0 (5.0-7.0) H 09/22/20 07:43 Ur Specific [place] 1.017 (1.003-1.030) 09/22/20 07:43 Urine Protein 30 mg/dl mg/dL (Negative) 09/22/20 07:43 Urine Glucose (UA) Neg mg/dL (Negative) 09/22/20 07:43 Urine Ketones Neg mg/dL (Negative) 09/22/20 07:43 Urine Blood Neg (Negative) 09/22/20 07:43 Urine Nitrite Neg (Negative) 09/22/20 07:43 Urine Bilirubin Neg (Negative) 09/22/20 07:43 Urine Urobilinogen < 2.0 mg/dL (<2.0) 09/22/20 07:43 Ur Leukocyte Esterase Neg (Negative) 09/22/20 07:43 Urine WBC (Auto) 1.0 /HPF (0.0-6.0) 09/22/20 07:43 Urine RBC (Auto) 1.0 /HPF (0.0-6.0) 09/22/20 07:43 Urine Mucus Few /HPF 09/22/20 07:43 Brandon/IV: Voiding Method Urinal IV Catheter Type [Left Peripheral IV Antecubital] Active Medications - Current Medications Current Medications: Generic Name Dose Route Start Last Admin Trade Name Freq PRN Reason Stop Dose Admin Acetaminophen 650 mg 09/22/20 15:05 09/23/20 21:33 Acetaminophen 325 Mg Tab PO 650 mg Q4H PRN Administration Pain MILD(1-3)/Fever >100.5/DELEON Metronidazole 500 mg in 100 mls @ 100 mls/hr 09/22/20 16:00 09/24/20 10:38 Flagyl 500 Mg/100 Ml IV 100 mls/hr Q8H HAO Administration Protocol Piperacillin Sod/Tazobactam Sod 4.5 gm in 100 mls @ 200 mls/hr 09/22/20 16:00 09/24/20 02:12 Zosyn/Ns 4.5gm/100ml IV Infused Q8H HAO Infusion Protocol Sodium Chloride 1,000 mls @ 125 mls/hr 09/22/20 15:15 09/24/20 06:23 Nacl 0.9% 1000 Ml IV Infused DIRECT HAO Infusion Ketorolac Tromethamine 30 mg 09/23/20 18:00 09/24/20 06:25 Ketorolac 30 Mg/1 Ml Inj IV 09/28/20 17:59 30 mg Q6H HAO Administration Lorazepam 2 mg 09/22/20 19:48 Lorazepam 2 Mg/Ml Vial IV Q1HR PRN CIWA-Ar 8-15 Morphine Sulfate 2 mg 09/23/20 13:05 09/23/20 21:33 Morphine 2 Mg/1 Ml Inj IV 2 mg Q4H PRN Administration Pain , Severe (7-10) Ondansetron HCl 4 mg 09/22/20 15:05 09/23/20 23:55 Ondansetron 4 Mg/2 Ml Inj IV 4 mg Q8H PRN Administration Nausea And Vomiting Oxycodone/Acetaminophen 2 tab 09/23/20 13:05 Oxycodone /Acetaminophen 5-325mg Tab PO Q6H PRN Pain, Moderate (4-6) Sodium Chloride 10 ml 09/22/20 22:00 09/23/20 21:25 Sodium Chloride 0.9% 10 Ml Flush Syringe IV 10 ml BID HAO Administration Sodium Chloride 10 ml 09/22/20 15:05 Sodium Chloride 0.9% 10 Ml Flush Syringe IV PRN PRN LINE FLUSH
--- NOTE | 2020-09-24 11:15 | Discharge Summary ---
Providers - Providers Date of Admission: 09/22/20 15:31 Attending physician: NATY SANTA MD 09/22/20 15:00 Consult to Physician [CONS] Urgent Comment: Consulting Provider: LINDA SANZ Physician Instructions: Reason For Exam: acute cholecystitis Primary care physician: [facility] Hospitalization Reason for admission: CHOLECYSTECTOMY Condition: Stable Hospital course: 35 YO Male with Obesity, Nicotine Dependence, ETOH Dependence presents to ED for evaluation. Patient states that she has experienced abdominal pain over the past 1 day with persistent symptoms over the same timeframe. Patient states that pain is 8/10, located near the umbilicus, constant, nonradiating, without exacerbating or alleviating factors. Patient acknowledges nausea. Patient transported to [facility] via private vehicle for further care and evaluation of the aforementioned symptoms. Patient seen and evaluated in the emergency department. All lab and imaging studies reviewed. Patient underwent CT scan of the abdomen and pelvis as well as an abdominal ultrasound which revealed evidence of acute cholecystitis. Surgical team consulted in the ED. Patient placed in observation status and admitted to surgical floor due to increased risk of worsening symptoms. Patient treated with IV fluid resuscitation therapy, bowel rest, and IV antibiotic therapy. Patient pending surgical intervention as per surgical team. (1) Acute cholecystitis Current Visit: Yes Status: Acute Plan to address problem: Patient is s/p Lap gavino. NO new complaints., Discharge when ok with surgeon. (2) Nicotine dependence Current Visit: Yes Status: Acute Qualifiers: Nicotine product type: cigarettes Substance use status: in withdrawal Qualified Code(s): F17.213 - Nicotine dependence, cigarettes, with withdrawal Plan to address problem: Smoking cessation counseling, supportive care, behavior change counseling, +15 minutes. (3) Alcohol dependence Current Visit: Yes Status: Acute Plan to address problem: Banana bag, supportive care, CIWA protocol, oral thiamine, folic acid, multivitamin when patient is able to tolerate oral diet (4) Obesity (BMI 30.0-34.9) Current Visit: Yes Status: Acute Plan to address problem: Balanced diet, increase physical activity discharge. Disposition: TO HOME OR SELFCARE Time spent for discharge: 35 MINS Core Measure Documentation - Palliative Care Palliative Care/ Comfort Measures: Not Applicable - Core Measures Any of the following diagnoses?: none Exam - Physical Exam Narrative exam: General appearance: Present: NO distress, obese - EENT Eyes: Present: PERRL ENT: hearing intact, clear oral mucosa - Neck Neck: Present: supple, normal ROM - Respiratory Respiratory effort: normal Respiratory: bilateral: CTA - Cardiovascular Rhythm: regular Heart Sounds: Present: S1 & S2. Absent: systolic murmur, diastolic murmur - Extremities Extremities: no ischemia, pulses intact, No edema, normal temperature, Full ROM Peripheral Pulses: within normal limits - Abdominal General gastrointestinal: soft, tender ONLY AT surgical site, non-distended, normal bowel sounds - Integumentary Integumentary: Present: clear, warm, dry - Psychiatric Psychiatric: appropriate mood/affect, intact judgment & insight, memory intact - Neurologic Neurologic: CNII-XII intact, moves all extremities - Allied Health Allied health notes reviewed: nursing - Constitutional Vitals: Temp Pulse Resp BP Pulse Ox 98.0 F 77 18 106/58 93 09/24/20 08:02 09/24/20 08:02 09/24/20 08:02 09/24/20 08:02 09/24/20 08:02 Plan Activity: advance as tolerated, fall precautions Diet: low fat Special Instructions: record daily weights, record daily BP diary Follow up with: LINDA SANZ MD [Staff Physician] - 7 Days PRIMARY CARE, [Primary Care Provider] - 3-5 Days Prescriptions: cephALEXin [Keflex] 500 mg PO Q12HR #10 cap traMADoL [Ultram] 50 mg PO Q6HR PRN #14 tablet PRN Reason: Pain
--- NOTE | 2020-09-24 11:52 | Progress Note ---
Assessment and Plan POD #1 s/p lap gavino for acute cholecystitis, cholelithiasis. stable and afebrile. Can d/c to home and follow up in the office in two weeks for post op check. Will be discharged with abx and pain medicine. Subjective Date of service: 09/24/20 Patient Reports: Positive: pain is less, tolerating liquids well (no acute events overnight. Pt says his pain is less and he is tolerating diet) Objective Vital Signs - 12hr 09/24/20 09/24/20 06:48 08:02 Temperature 98.2 F 98.0 F Pulse Rate 68 77 Respiratory 18 18 Rate Blood Pressure 106/58 Blood Pressure 104/48 [Left] O2 Sat by Pulse 95 93 Oximetry - General physical appearance well developed, no distress, no pain - Respiratory normal expansion, normal respiratory effort - Abdomen soft, not rebound, not guarding, not rigid, other (incisions c/d/i, appropriatley tender to palpation) - Labs 09/24/20 06:38 09/24/20 06:38 Diabetes panel 09/24/20 Range/Units 06:38 Sodium 142 (137-145) mmol/L Potassium 3.9 (3.6-5.0) mmol/L Chloride 107.2 H (98-107) mmol/L Carbon Dioxide 23 (22-30) mmol/L BUN 12 (9-20) mg/dL Creatinine 0.8 (0.8-1.3) mg/dL Glucose 111 H (75-100) mg/dL Calcium 8.1 L D (8.4-10.2) mg/dL AST 26 (5-40) units/L ALT 42 (7-56) units/L Alkaline Phosphatase 46 (35-129) units/L Total Protein 6.2 L D (6.3-8.2) g/dL Albumin 3.3 L (3.9-5) g/dL Calcium panel 09/24/20 Range/Units 06:38 Calcium 8.1 L D (8.4-10.2) mg/dL Albumin 3.3 L (3.9-5) g/dL Pituitary panel 09/24/20 Range/Units 06:38 Sodium 142 (137-145) mmol/L Potassium 3.9 (3.6-5.0) mmol/L Chloride 107.2 H (98-107) mmol/L Carbon Dioxide 23 (22-30) mmol/L BUN 12 (9-20) mg/dL Creatinine 0.8 (0.8-1.3) mg/dL Glucose 111 H (75-100) mg/dL Calcium 8.1 L D (8.4-10.2) mg/dL Adrenal panel 09/24/20 Range/Units 06:38 Sodium 142 (137-145) mmol/L Potassium 3.9 (3.6-5.0) mmol/L Chloride 107.2 H (98-107) mmol/L Carbon Dioxide 23 (22-30) mmol/L BUN 12 (9-20) mg/dL Creatinine 0.8 (0.8-1.3) mg/dL Glucose 111 H (75-100) mg/dL Calcium 8.1 L D (8.4-10.2) mg/dL Total Bilirubin 0.40 (0.1-1.2) mg/dL AST 26 (5-40) units/L ALT 42 (7-56) units/L Alkaline Phosphatase 46 (35-129) units/L Total Protein 6.2 L D (6.3-8.2) g/dL Albumin 3.3 L (3.9-5) g/dL
== END 2020-09-24 14:47 | disposition home or self-care (01) ==
LOC: ED 07:27 → 3B-SURG 15:31
PROVIDERS: ADMIT Internal Medicine; ATTEND Internal Medicine
DX: R65.10 Systemic inflammatory response syndrome (SIRS) of non-infectious origin without acute organ dysfunction (principal); K81.0 Acute cholecystitis; E66.9 Obesity, unspecified; F10.229 Alcohol dependence with intoxication, unspecified; F17.213 Nicotine dependence, cigarettes, with withdrawal; Z68.31 Body mass index [BMI] 31.0-31.9, adult
CPT/HCPCS: 36415; 47562; 71275; 74177; 76700; 80053; 81001; 83690; 85025; 88304; 96361; 96365; 96366; 96367; 96368; 96375; 96376; 99285; G0378; J1100; J1885; J1956; J2270; J2405; J2543; J2704; J2710; J3010; J3411; J7030; J7120; Q9967